=== PATIENT | female | born 1940 | race African-American/Black ===

== ENCOUNTER 2017-04-03 11:05 | Inpatient (IN) | payer MEDICARE, OTHER ==
[~2017-04-03] VITALS: Ht 170.2 cm; Wt 81.2 kg
[2017-04-03] MEDS ORDERED: MORPHINE SULFATE 4 MG/ML CPJ (NOT FOR IM USE) IV STA (12:41)
[2017-04-03] MEDS ORDERED: ONDANSETRON HCL 4MG/2ML VIAL IV STA (12:41)
[2017-04-03] MEDS ORDERED: SODIUM CHLORIDE 0.9% 1,000 ML IV ONE (12:41)
[2017-04-03] MEDS ORDERED: TETANUS, DIPHTHERIA, PERTUSSIS VAC/PF 0.5ML (>7YR OLD) IM ONE ×2 (12:45→17:45)
[2017-04-03] MEDS ORDERED: BACITRACIN ZINC OINT UDPKT TOP ONE (12:45)
[2017-04-03 13:05] LABS: HEMATOCRIT. 37.5 % (36.0-48.0); HEMOGLOBIN. 12.3 g/dL (12.0-16.0); MEAN CORPUSCULAR HEMOGLOBIN 30.8 pg (28.0-32.0); MEAN CORPUSCULAR VOLUME 94.2 fL (81.0-99.0); MEAN PLATELET VOLUME 10.9 fl (7.4-10.4); PLATELET 148 x1000/uL (130-400); RED BLOOD CELL COUNT 3.98 mill/uL (4.2-5.4)
[2017-04-03 13:14] LABS: INR 1.1; PROTHROMBIN TIME 11.8 sec (9.4-11.6)
[2017-04-03 13:15] LABS: CHLORIDE 100 mEq/L (98-107)
[2017-04-03 13:23] LABS: CARBON DIOXIDE 30 mEq/L (21-32); TROPONIN I 0.02 ng/mL (0.00-0.04)
[2017-04-03 13:46] LABS: PLATELET ESTIMATE NORMAL
[2017-04-03] MEDS ORDERED: SODIUM CHLORIDE 0.9% 1000ML BAG (SEPSIS BOLUS) IV ONE (14:15)
[2017-04-03] MEDS ORDERED: LEVOFLOXACIN 750MG PREMIX 150 ML IV ONE (14:15)
[2017-04-03] MEDS ORDERED: ONDANSETRON HCL 4MG/2ML VIAL IV PRN (17:00)
[2017-04-03] MEDS ORDERED: TRAMADOL 50MG TABLET PO PRN (17:00)
[2017-04-03] MEDS ORDERED: MORPHINE SULFATE 4 MG/ML CPJ (NOT FOR IM USE) IV PRN (17:00)
[2017-04-03] MEDS ORDERED: NITROGLYCERIN 0.4MG TABLET SL SL PRN (17:00)
[2017-04-03] MEDS ORDERED: DOCUSATE SODIUM 100MG CAPSULE PO PRN (17:00)
[2017-04-03] MEDS ORDERED: MAGNESIUM/ALUMINUM HYDROXIDE/SIMETHICONE 30ML UDC PO PRN (17:00)
[2017-04-03] MEDS ORDERED: DIPHENHYDRAMINE 50MG/ML VIAL IV PRN (17:00)
[2017-04-03] MEDS ORDERED: ACETAMINOPHEN 325MG TABLET PO PRN (17:00)
[2017-04-03] MEDS ORDERED: ZOLPIDEM TARTRATE 5MG TABLET PO PRN (17:00)
[2017-04-03] MEDS ORDERED: LEVOFLOXACIN 500MG PREMIX 100 ML IV SCH (17:00)
[2017-04-03] MEDS ORDERED: IPRATROPIUM/ALBUTEROL 0.5-3(2.5)MG/3ML NEB INH PRN (17:00)
[2017-04-03] MEDS ORDERED: NA PHOS,M-B/NA PHOS,DI-BA ENEMA 118ML PR PRN (17:00)
[2017-04-03] MEDS ORDERED: CLONIDINE 0.1MG TABLET PO PRN (17:00)
[2017-04-03] MEDS ORDERED: GUAIFENESIN 200MG/10ML SUGAR FREE UDC PO PRN (17:00)
[2017-04-03 17:12] LABS: CLARITY URINE CLOUDY (CLEAR); COLOR URINE DARK YELLOW (YELLOW); GLUCOSE URINE NEGATIVE (NEGATIVE); KETONES URINE TRACE (NEGATIVE); LEUKOCYTE ESTERASE URINE TRACE (NEGATIVE); NITRITE URINE NEGATIVE (NEGATIVE); OCCULT BLOOD URINE NEGATIVE (NEGATIVE); PROTEIN URINE 1+ (NEGATIVE); SPECIFIC GRAVITY URINE 1.027 (1.005-1.030)
[2017-04-03 17:30] LABS: T4 FREE 1.88 ng/dL (0.76-1.46)
[2017-04-03] MEDS ORDERED: BACITRACIN ZINC OINT UDPKT TOP NR (17:30)
[2017-04-03 17:55] LABS: FOLIC ACID (FOLATE) SERUM 13.5 ng/mL (>5.38)
[2017-04-03 22:35] VITALS: BP 105/61
[2017-04-03 23:06] LABS: CREATINE KINASE MB FRACTION 2.8 ng/mL (0.5-3.6); TROPONIN I 0.02 ng/mL (0.00-0.04)
[2017-04-04] MEDS: DEXT 5%/0.45% NACL 1000ML 1,000 ML IV SCH ×3 (01:37→21:55)
[2017-04-04 04:00] VITALS: BP 128/69
[2017-04-04] MEDS ORDERED: VANCOMYCIN HCL 500 MG/VIAL ONE (06:23)
[2017-04-04] MEDS ORDERED: BACITRACIN ZINC 15GM TUBE TOP ONE (06:23)
[2017-04-04] MEDS ORDERED: VASOPRESSIN 20 UNIT/ML 1ML ONE (07:32)
[2017-04-04] MEDS ORDERED: DEXAMETHASONE 4MG/ML 1ML VIAL ONE (07:32)
[2017-04-04] MEDS ORDERED: CEFAZOLIN SODIUM 1000MG/VIAL ONE (07:32)
[2017-04-04 08:12] LABS: CREATINE KINASE MB FRACTION 2.2 ng/mL (0.5-3.6); TROPONIN I 0.02 ng/mL (0.00-0.04)
[2017-04-04] MEDS ORDERED: LABETALOL HCL 20MG/4ML CARPUJECT IV PRN (08:30)
[2017-04-04] MEDS ORDERED: ONDANSETRON HCL 4MG/2ML VIAL IV PRN (08:30)
[2017-04-04] MEDS ORDERED: HYDROMORPHONE HCL/PF 2MG/ML CPJ IV PRN (08:30)
[2017-04-04] MEDS ORDERED: MEPERIDINE HCL/PF 25MG/ML CPJ IV PRN (08:30)
[2017-04-04] MEDS: METOPROLOL TARTRATE 25MG TABLET PO SCH ×2 (09:00→21:00)
[2017-04-04] MEDS ORDERED: ENOXAPARIN 40MG/0.4ML SYR SUBCUT SCH (09:00)
[2017-04-04] MEDS: FAMOTIDINE 20MG/2ML VIAL IV SCH (11:52)
[2017-04-04 11:53] VITALS: BP 108/59
[2017-04-04] MEDS: ASCORBIC ACID 500 MG TABLET PO SCH ×2 (11:57→21:55)
[2017-04-04] MEDS: ZINC SULFATE 220 MG ( 50 ) CAPSULE PO SCH (11:57)
[2017-04-04] MEDS: FERROUS SULFATE 300MG/5ML UDC PO SCH ×2 (13:27→18:25)
[2017-04-04] MEDS ORDERED: RIVA10TA PO (13:39)
[2017-04-04] MEDS ORDERED: FURO20TA4 PO (13:39)
[2017-04-04] MEDS ORDERED: DONE5TAB33 PO (13:39)
[2017-04-04] MEDS ORDERED: CHOL100046 PO (13:39)
[2017-04-04] MEDS ORDERED: LOSA25TA12 PO (13:39)
[2017-04-04] MEDS ORDERED: KDUR10 PO (13:39)
[2017-04-04] MEDS: CEFAZOLIN 1000MG PREMIX 50 ML IV SCH ×2 (17:58→23:11)
[2017-04-04] MEDS: LEVOFLOXACIN 250MG PREMIX 50 ML IV SCH (18:26)
[2017-04-04 20:00] VITALS: BP 107/62
[2017-04-04 23:53] VITALS: BP 123/62
[2017-04-05] MEDS: DEXT 5%/0.45% NACL 1000ML 1,000 ML IV SCH ×2 (01:40→15:45)
[2017-04-05 04:00] VITALS: BP 121/81
[2017-04-05] MEDS: FERROUS SULFATE 300MG/5ML UDC PO SCH ×3 (07:50→17:30)
[2017-04-05 08:00] VITALS: BP 134/71
[2017-04-05] MEDS ORDERED: ENOXAPARIN 80MG/0.8ML SYR SUBCUT SCH (09:00)
[2017-04-05] MEDS: METOPROLOL TARTRATE 25MG TABLET PO SCH ×2 (09:00→21:00)
[2017-04-05] MEDS: ASCORBIC ACID 500 MG TABLET PO SCH ×2 (09:00→22:01)
[2017-04-05] MEDS: ZINC SULFATE 220 MG ( 50 ) CAPSULE PO SCH (09:00)
[2017-04-05 12:00] VITALS: BP 113/65
[2017-04-05 12:05] LABS: CARBON DIOXIDE 20 mEq/L (21-32); CHLORIDE 105 mEq/L (98-107)
[2017-04-05] MEDS: FAMOTIDINE 20MG/2ML VIAL IV SCH (12:49)
[2017-04-05 14:08] LABS: HEMATOCRIT. 25.1 % (36.0-48.0); HEMOGLOBIN. 8.1 g/dL (12.0-16.0); MEAN CORPUSCULAR HEMOGLOBIN 30.7 pg (28.0-32.0); MEAN CORPUSCULAR VOLUME 95.1 fL (81.0-99.0); MEAN PLATELET VOLUME 12.5 fl (7.4-10.4); PLATELET 123 x1000/uL (130-400); RED BLOOD CELL COUNT 2.64 mill/uL (4.2-5.4); RED CELL DISTRIBUTION WIDTH 14.5 % (11.6-14.6)
[2017-04-05 16:00] VITALS: BP 119/69
[2017-04-05] MEDS: LEVOFLOXACIN 250MG PREMIX 50 ML IV SCH (17:30)
[2017-04-05 17:54] LABS: PLATELET ESTIMATE NORMAL
[2017-04-05 20:35] VITALS: BP 110/70
[2017-04-05] MEDS: ENOXAPARIN 80MG/0.8ML SYR SUBCUT SCH (22:00)
[2017-04-06 00:14] VITALS: BP 114/60
[2017-04-06 05:03] VITALS: BP 128/70
[2017-04-06 07:43] VITALS: BP 111/52
[2017-04-06] MEDS: FAMOTIDINE 20MG/2ML VIAL IV SCH (08:57)
[2017-04-06] MEDS: ZINC SULFATE 220 MG ( 50 ) CAPSULE PO SCH (08:57)
[2017-04-06] MEDS: ASCORBIC ACID 500 MG TABLET PO SCH ×2 (08:57→20:43)
[2017-04-06] MEDS: FERROUS SULFATE 300MG/5ML UDC PO SCH ×3 (08:58→18:12)
[2017-04-06] MEDS: METOPROLOL TARTRATE 25MG TABLET PO SCH ×2 (09:01→20:44)
[2017-04-06] MEDS: ENOXAPARIN 80MG/0.8ML SYR SUBCUT SCH ×2 (09:04→20:44)
[2017-04-06 11:55] VITALS: BP 100/59
[2017-04-06 15:59] VITALS: BP 104/53
[2017-04-06 15:59] LABS: BASOPHILS % 0.4 % (0.0-2.0); EOSINOPHILS % 0.1 % (0.0-5.0); HEMATOCRIT. 23.9 % (36.0-48.0); LYMPHOCYTES % 12.2 % (20.0-50.0); MEAN PLATELET VOLUME 13.1 fl (7.4-10.4); MONOCYTES % 11.2 % (2.0-8.0); NEUTROPHILS % 76.1 % (40.0-76.0); PLATELET 114 x1000/uL (130-400); RED BLOOD CELL COUNT 2.52 mill/uL (4.2-5.4); RED CELL DISTRIBUTION WIDTH 14.9 % (11.6-14.6)
[2017-04-06 16:04] LABS: CARBON DIOXIDE 24 mEq/L (21-32); CHLORIDE 103 mEq/L (98-107)
[2017-04-06] MEDS ORDERED: WARFARIN SODIUM 7.5MG TABLET PO NR (18:00)
[2017-04-06] MEDS: LEVOFLOXACIN 250MG TABLET PO SCH (18:13)
[2017-04-06 20:00] VITALS: BP 166/70
[2017-04-06] MEDS ORDERED: IRON SUCROSE COMPLEX 100 MG/5 ML ML IV SCH (20:00)
[2017-04-07] VITALS: BP 95/40
[2017-04-07 04:00] VITALS: BP 118/43
[2017-04-07 07:02] LABS: INR 1.5; PROTHROMBIN TIME 15.7 sec (9.4-11.6)
[2017-04-07 08:00] VITALS: BP 132/42
[2017-04-07] MEDS: FAMOTIDINE 20MG/2ML VIAL IV SCH (08:47)
[2017-04-07] MEDS: ASCORBIC ACID 500 MG TABLET PO SCH ×2 (08:47→21:31)
[2017-04-07] MEDS: ENOXAPARIN 80MG/0.8ML SYR SUBCUT SCH ×2 (08:47→21:31)
[2017-04-07] MEDS: FERROUS SULFATE 300MG/5ML UDC PO SCH ×3 (08:47→18:42)
[2017-04-07] MEDS: METOPROLOL TARTRATE 25MG TABLET PO SCH ×2 (08:52→21:00)
[2017-04-07] MEDS: ZINC SULFATE 220 MG ( 50 ) CAPSULE PO SCH (08:52)
[2017-04-07] MEDS: LACTULOSE 20G/30ML UDC PO SCH ×4 (08:53→21:35)
[2017-04-07 12:00] VITALS: BP 125/56
[2017-04-07 16:00] VITALS: BP 130/58
[2017-04-07] MEDS ORDERED: WARFARIN SODIUM 5MG TABLET PO SCH (18:00)
[2017-04-07] MEDS: LEVOFLOXACIN 250MG TABLET PO SCH (18:42)
[2017-04-07 20:00] VITALS: BP 119/61
[2017-04-08] VITALS: BP 127/68
[2017-04-08 04:00] VITALS: BP 100/55
[2017-04-08 06:34] LABS: INR 3.8; PROTHROMBIN TIME 39.8 sec (9.4-11.6)
[2017-04-08 08:28] VITALS: BP 117/72
[2017-04-08] MEDS: METOPROLOL TARTRATE 25MG TABLET PO SCH (09:00)
[2017-04-08] MEDS: ASCORBIC ACID 500 MG TABLET PO SCH (09:17)
[2017-04-08] MEDS: FAMOTIDINE 20MG/2ML VIAL IV SCH (09:17)
[2017-04-08] MEDS: ZINC SULFATE 220 MG ( 50 ) CAPSULE PO SCH (09:17)
[2017-04-08] MEDS: LACTULOSE 20G/30ML UDC PO SCH (09:17)
[2017-04-08] MEDS: FERROUS SULFATE 300MG/5ML UDC PO SCH (09:17)
[2017-04-08] MEDS: ENOXAPARIN 80MG/0.8ML SYR SUBCUT SCH (09:17)
== END 2017-04-08 10:40 | DRG 480 ==
LOC: ER 11:11 → EDBEDREQ 14:07 → 6WST 16:20 → EDBEDREQ 16:25 → SUPCPDRO 16:55 → ENRESERV 20:53
PROVIDERS: ADMIT Internal Medicine; ATTEND Internal Medicine
PROC: 0QS636Z Reposition Right Upper Femur with Intramedullary Internal Fixation Device, Percutaneous Approach (ICD-10-PCS; principal; 2017-04-04 07:00)
DX: S72.301A Unspecified fracture of shaft of right femur, initial encounter for closed fracture (principal); E43 Unspecified severe protein-calorie malnutrition; G93.40 Encephalopathy, unspecified; D69.6 Thrombocytopenia, unspecified; D64.9 Anemia, unspecified; G30.9 Alzheimer's disease, unspecified; R13.10 Dysphagia, unspecified; N39.0 Urinary tract infection, site not specified; F02.80 Dementia in other diseases classified elsewhere, unspecified severity, without behavioral disturbance, psychotic disturbance, mood disturbance, and anxiety; E44.0 Moderate protein-calorie malnutrition; D62 Acute posthemorrhagic anemia; D72.829 Elevated white blood cell count, unspecified; Z51.5 Encounter for palliative care; I10 Essential (primary) hypertension; M19.90 Unspecified osteoarthritis, unspecified site; M75.00 Adhesive capsulitis of unspecified shoulder; R26.9 Unspecified abnormalities of gait and mobility; M85.80 Other specified disorders of bone density and structure, unspecified site; S72.401A Unspecified fracture of lower end of right femur, initial encounter for closed fracture; W19.XXXA Unspecified fall, initial encounter; Y93.89 Activity, other specified; Y92.098 Other place in other non-institutional residence as the place of occurrence of the external cause; Y99.8 Other external cause status; Z79.899 Other long term (current) drug therapy; Z68.28 Body mass index [BMI] 28.0-28.9, adult; Z88.0 Allergy status to penicillin
CPT/HCPCS: 36415; 51702; 70450; 71010; 73090; 73521; 73552; 73560; 73590; 73600; 73620; 80053; 80061; 81001; 82550; 82553; 82607; 82746; 83036; 83540; 83550; 83605; 84439; 84443; 84484; 85025; 85610; 85730; 86850; 86900; 87040; 87086; 90715; 92523; 92610; 93005; 93306; 93970; 96361; 96365; 96366; 96375; 97110; 97163; 97165; 97530; 99285; A6261; C1713; C1769; J0690; J1100; J1200; J1650; J1956; J2270; J2405; J3370; J3490; J7030; A4315

== ENCOUNTER 2017-04-08 12:26 | Inpatient (IN) | payer MEDICARE, OTHER ==
[~2017-04-08] VITALS: Ht 170.2 cm; Wt 80.7 kg
[2017-04-08 12:00] VITALS: BP 96/61
[~2017-04-08 12:26] MED LIST: CHOL100046 PO; DONE5TAB33 PO; FURO20TA4 PO; KDUR10 PO; LOSA25TA12 PO; RIVA10TA PO
[2017-04-08 14:00] VITALS: BP 96/41
[2017-04-08] MEDS ORDERED: IPRATROPIUM/ALBUTEROL 0.5-3(2.5)MG/3ML NEB HHN PRN (15:30)
[2017-04-08] MEDS ORDERED: NA PHOS,M-B/NA PHOS,DI-BA ENEMA 118ML PR PRN (15:30)
[2017-04-08] MEDS ORDERED: ZOLPIDEM TARTRATE 5MG TABLET PO PRN (15:30)
[2017-04-08] MEDS ORDERED: CLONIDINE 0.1MG TABLET PO PRN (15:30)
[2017-04-08] MEDS ORDERED: TRAMADOL 50MG TABLET PO PRN (15:30)
[2017-04-08] MEDS ORDERED: DIPHENHYDRAMINE 25MG CAPSULE PO PRN (15:30)
[2017-04-08] MEDS ORDERED: MAGNESIUM/ALUMINUM HYDROXIDE/SIMETHICONE 30ML UDC PO PRN (15:30)
[2017-04-08] MEDS ORDERED: GUAIFENESIN 200MG/10ML SUGAR FREE UDC PO PRN (15:30)
[2017-04-08] MEDS ORDERED: NITROGLYCERIN 0.4MG TABLET SL SL PRN (15:30)
[2017-04-08] MEDS ORDERED: ACETAMINOPHEN 325MG TABLET PO PRN (15:30)
[2017-04-08] MEDS ORDERED: ONDANSETRON HCL 4MG/2ML VIAL IV PRN (15:30)
[2017-04-08] MEDS ORDERED: LACTULOSE 20G/30ML UDC PO PRN (15:30)
[2017-04-08 16:57] VITALS: BP 96/61
[2017-04-08] MEDS ORDERED: MORPHINE SULFATE 4 MG/ML CPJ (NOT FOR IM USE) IV PRN (17:15)
[2017-04-08] MEDS: FERROUS SULFATE 300MG/5ML UDC PO SCH (18:05)
[2017-04-08] MEDS: DOCUSATE SODIUM 100MG CAPSULE PO SCH (18:05)
[2017-04-08 19:00] VITALS: BP 147/60
[2017-04-08] MEDS ORDERED: ENOXAPARIN 80MG/0.8ML SYR SUBCUT SCH (21:00)
[2017-04-08] MEDS: ASCORBIC ACID 500 MG TABLET PO SCH (21:43)
[2017-04-08] MEDS: METOPROLOL TARTRATE 25MG TABLET PO SCH (21:44)
[2017-04-09 07:52] LABS: BASOPHILS % 0.5 % (0.0-2.0); EOSINOPHILS % 1.1 % (0.0-5.0); HEMATOCRIT. 23.3 % (36.0-48.0); HEMOGLOBIN. 7.7 g/dL (12.0-16.0); LYMPHOCYTES % 17.5 % (20.0-50.0); MEAN CORPUSCULAR HEMOGLOBIN 31.6 pg (28.0-32.0); MEAN CORPUSCULAR VOLUME 95.7 fL (81.0-99.0); MEAN PLATELET VOLUME 11.8 fl (7.4-10.4); MONOCYTES % 12.1 % (2.0-8.0); NEUTROPHILS % 68.8 % (40.0-76.0); PLATELET 154 x1000/uL (130-400); RED BLOOD CELL COUNT 2.43 mill/uL (4.2-5.4); RED CELL DISTRIBUTION WIDTH 15.4 % (11.6-14.6)
[2017-04-09 07:56] LABS: INR 3.7; PROTHROMBIN TIME 39.1 sec (9.4-11.6)
[2017-04-09 08:00] VITALS: BP 109/59
[2017-04-09 08:00] LABS: CARBON DIOXIDE 28 mEq/L (21-32); CHLORIDE 106 mEq/L (98-107)
[2017-04-09] MEDS: FERROUS SULFATE 300MG/5ML UDC PO SCH ×3 (08:12→18:02)
[2017-04-09] MEDS: FAMOTIDINE 20MG TABLET PO SCH (08:13)
[2017-04-09] MEDS: ASCORBIC ACID 500 MG TABLET PO SCH ×2 (08:13→21:38)
[2017-04-09] MEDS: DOCUSATE SODIUM 100MG CAPSULE PO SCH ×2 (08:13→18:03)
[2017-04-09] MEDS: ZINC SULFATE 220 MG ( 50 ) CAPSULE PO SCH (08:14)
[2017-04-09] MEDS: METOPROLOL TARTRATE 25MG TABLET PO SCH ×2 (08:15→21:38)
[2017-04-09] MEDS: LEVOFLOXACIN 250MG TABLET PO SCH (11:32)
[2017-04-09 17:19] LABS: CLARITY URINE CLOUDY (CLEAR); COLOR URINE DARK YELLOW (YELLOW); GLUCOSE URINE NEGATIVE (NEGATIVE); KETONES URINE TRACE (NEGATIVE); LEUKOCYTE ESTERASE URINE 1+ (NEGATIVE); NITRITE URINE NEGATIVE (NEGATIVE); OCCULT BLOOD URINE 3+ (NEGATIVE); PROTEIN URINE 1+ (NEGATIVE); SPECIFIC GRAVITY URINE 1.022 (1.005-1.030)
[2017-04-09 20:00] VITALS: BP 133/51
[2017-04-10 07:00] LABS: PROTHROMBIN TIME 21.2 sec (9.4-11.6)
[2017-04-10 07:30] LABS: CARBON DIOXIDE 26 mEq/L (21-32); CHLORIDE 103 mEq/L (98-107); PHOSPHORUS 2.5 mg/dL (2.5-4.9); TOTAL IRON BINDING CAPACITY 154 ug/dL (250-450)
[2017-04-10 07:33] LABS: BASOPHILS % 0.3 % (0.0-2.0); EOSINOPHILS % 0.8 % (0.0-5.0); HEMATOCRIT. 23.2 % (36.0-48.0); HEMOGLOBIN. 7.7 g/dL (12.0-16.0); LYMPHOCYTES % 16.1 % (20.0-50.0); MEAN CORPUSCULAR HEMOGLOBIN 32.1 pg (28.0-32.0); MEAN CORPUSCULAR VOLUME 96.4 fL (81.0-99.0); MEAN PLATELET VOLUME 11.6 fl (7.4-10.4); MONOCYTES % 12.1 % (2.0-8.0); NEUTROPHILS % 70.7 % (40.0-76.0); PLATELET 160 x1000/uL (130-400); RED BLOOD CELL COUNT 2.41 mill/uL (4.2-5.4); RED CELL DISTRIBUTION WIDTH 16.1 % (11.6-14.6)
[2017-04-10 08:00] VITALS: BP 117/50
[2017-04-10 08:16] LABS: FOLIC ACID (FOLATE) SERUM 4.5 ng/mL (>5.38)
[2017-04-10] MEDS: METOPROLOL TARTRATE 25MG TABLET PO SCH ×2 (08:35→21:00)
[2017-04-10] MEDS: DOCUSATE SODIUM 100MG CAPSULE PO SCH ×2 (08:43→17:34)
[2017-04-10] MEDS: FAMOTIDINE 20MG TABLET PO SCH (08:44)
[2017-04-10] MEDS: ASCORBIC ACID 500 MG TABLET PO SCH ×2 (08:44→21:58)
[2017-04-10] MEDS: FERROUS SULFATE 300MG/5ML UDC PO SCH ×3 (08:44→17:34)
[2017-04-10] MEDS: ZINC SULFATE 220 MG ( 50 ) CAPSULE PO SCH (08:44)
[2017-04-10] MEDS: LEVOFLOXACIN 250MG TABLET PO SCH (12:10)
[2017-04-10] MEDS ORDERED: WARFARIN SODIUM 2MG TABLET PO SCH (18:00)
[2017-04-10 20:00] VITALS: BP 122/54
[2017-04-11] VITALS (7 sets, daily range): BP systolic 95–135; BP diastolic 45–56
[2017-04-11] MEDS ORDERED: LACTULOSE 20G/30ML UDC PO SCH (08:15)
[2017-04-11 08:52] LABS: INR 1.7; PROTHROMBIN TIME 18.1 sec (9.4-11.6)
[2017-04-11] MEDS: METOPROLOL TARTRATE 25MG TABLET PO SCH ×2 (09:00→21:17)
[2017-04-11 09:05] LABS: HEMATOCRIT. 27.6 % (36.0-48.0); HEMOGLOBIN. 9.3 g/dL (12.0-16.0); MEAN CORPUSCULAR HEMOGLOBIN 31.5 pg (28.0-32.0); MEAN CORPUSCULAR VOLUME 93.4 fL (81.0-99.0); MEAN PLATELET VOLUME 11.4 fl (7.4-10.4); PLATELET 165 x1000/uL (130-400); RED BLOOD CELL COUNT 2.95 mill/uL (4.2-5.4); RED CELL DISTRIBUTION WIDTH 16.6 % (11.6-14.6)
[2017-04-11] MEDS: FOLIC ACID 1MG TABLET PO SCH (09:31)
[2017-04-11] MEDS: DOCUSATE SODIUM 100MG CAPSULE PO SCH ×2 (09:31→17:09)
[2017-04-11] MEDS: CYANOCOBALAMIN 1000MCG/ML VIAL IM SCH (09:31)
[2017-04-11] MEDS: FERROUS SULFATE 300MG/5ML UDC PO SCH ×3 (09:31→17:09)
[2017-04-11] MEDS: ASCORBIC ACID 500 MG TABLET PO SCH ×2 (09:32→21:16)
[2017-04-11] MEDS: FAMOTIDINE 20MG TABLET PO SCH (09:32)
[2017-04-11] MEDS: ZINC SULFATE 220 MG ( 50 ) CAPSULE PO SCH (09:32)
[2017-04-11] MEDS: LEVOFLOXACIN 250MG TABLET PO SCH (11:23)
[2017-04-11 17:05] LABS: PLATELET ESTIMATE NORMAL
[2017-04-11] MEDS ORDERED: WARFARIN SODIUM 4MG TABLET PO NR (18:00)
[2017-04-12 06:09] LABS: HEMATOCRIT. 28.2 % (36.0-48.0); HEMOGLOBIN. 9.5 g/dL (12.0-16.0); MEAN CORPUSCULAR HEMOGLOBIN 31.9 pg (28.0-32.0); MEAN CORPUSCULAR VOLUME 94.4 fL (81.0-99.0); MEAN PLATELET VOLUME 10.6 fl (7.4-10.4); PLATELET 185 x1000/uL (130-400); RED BLOOD CELL COUNT 2.99 mill/uL (4.2-5.4); RED CELL DISTRIBUTION WIDTH 17.2 % (11.6-14.6)
[2017-04-12 06:26] LABS: INR 1.8
[2017-04-12 08:00] VITALS: BP 129/56
[2017-04-12 09:43] LABS: ATYPICAL LYMPHOCYTES 1; PLATELET ESTIMATE NORMAL
[2017-04-12] MEDS: FERROUS SULFATE 300MG/5ML UDC PO SCH ×3 (09:44→17:28)
[2017-04-12] MEDS: DOCUSATE SODIUM 100MG CAPSULE PO SCH ×2 (09:45→17:28)
[2017-04-12] MEDS: FAMOTIDINE 20MG TABLET PO SCH (09:45)
[2017-04-12] MEDS: FOLIC ACID 1MG TABLET PO SCH (09:45)
[2017-04-12] MEDS: ZINC SULFATE 220 MG ( 50 ) CAPSULE PO SCH (09:45)
[2017-04-12] MEDS: ASCORBIC ACID 500 MG TABLET PO SCH ×2 (09:45→21:42)
[2017-04-12] MEDS: CYANOCOBALAMIN 1000MCG/ML VIAL IM SCH (09:45)
[2017-04-12] MEDS: METOPROLOL TARTRATE 25MG TABLET PO SCH ×2 (09:47→21:00)
[2017-04-12] MEDS ORDERED: WARFARIN SODIUM 4MG TABLET PO SCH (18:00)
[2017-04-12 20:00] VITALS: BP 136/65
[2017-04-13 08:00] VITALS: BP 130/64
[2017-04-13] MEDS: METOPROLOL TARTRATE 25MG TABLET PO SCH (08:58)
[2017-04-13] MEDS: CYANOCOBALAMIN 1000MCG/ML VIAL IM SCH (09:10)
[2017-04-13] MEDS: ASCORBIC ACID 500 MG TABLET PO SCH (09:10)
[2017-04-13] MEDS: FOLIC ACID 1MG TABLET PO SCH (09:10)
[2017-04-13] MEDS: FERROUS SULFATE 300MG/5ML UDC PO SCH (09:10)
[2017-04-13] MEDS: DOCUSATE SODIUM 100MG CAPSULE PO SCH (09:10)
[2017-04-13] MEDS: FAMOTIDINE 20MG TABLET PO SCH (09:10)
[2017-04-13] MEDS: ZINC SULFATE 220 MG ( 50 ) CAPSULE PO SCH (09:10)
[2017-04-13 09:52] LABS: PROTHROMBIN TIME 20.5 sec (9.4-11.6)
[2017-04-13 11:51] VITALS: BP 130/64
[2017-04-13 13:08] LABS: 25-HYDROXY VITAMIN D3 30 ng/mL (.)
[2017-04-13] MEDS ORDERED: WARFARIN SODIUM 4MG TABLET PO SCH (18:00)
== END 2017-04-13 14:18 | DRG 533 ==
PROVIDERS: ADMIT Physical Medicine & Rehabilitation Spinal Cord Injury Medicine; ATTEND Internal Medicine
PROC: 30233N1 Transfusion of Nonautologous Red Blood Cells into Peripheral Vein, Percutaneous Approach (ICD-10-PCS; principal; 2017-04-11)
DX: S72.401A Unspecified fracture of lower end of right femur, initial encounter for closed fracture (principal); E43 Unspecified severe protein-calorie malnutrition; L89.152 Pressure ulcer of sacral region, stage 2; I82.411 Acute embolism and thrombosis of right femoral vein; D69.6 Thrombocytopenia, unspecified; D62 Acute posthemorrhagic anemia; N39.0 Urinary tract infection, site not specified; R13.10 Dysphagia, unspecified; G30.9 Alzheimer's disease, unspecified; F02.80 Dementia in other diseases classified elsewhere, unspecified severity, without behavioral disturbance, psychotic disturbance, mood disturbance, and anxiety; I82.431 Acute embolism and thrombosis of right popliteal vein; F06.31 Mood disorder due to known physiological condition with depressive features; D63.8 Anemia in other chronic diseases classified elsewhere; M75.02 Adhesive capsulitis of left shoulder; I10 Essential (primary) hypertension; W18.39XA Other fall on same level, initial encounter; Z88.0 Allergy status to penicillin; Z79.899 Other long term (current) drug therapy; Z68.27 Body mass index [BMI] 27.0-27.9, adult; Z79.01 Long term (current) use of anticoagulants
CPT/HCPCS: 36415; 80048; 80053; 81001; 82306; 82607; 82728; 82746; 83036; 83540; 83550; 83735; 84100; 84443; 84630; 85025; 85610; 86850; 86900; 86920; 87086; 87106; 92523; 97110; 97112; 97163; 97166; 97530; 97535; A6261; C1893; J3420; J7030; J7040; P9016; Q0163; A5200